=== PATIENT | male | born 1940 | race Hispanic/Latino ===

== ENCOUNTER 2016-10-30 13:17 | Emergency (ER) | payer BC, MEDICARE ==
--- NOTE | 2016-10-30 14:11 | ED PDOC ---
Arrival/HPI - General Chief Complaint: Trauma Time Seen by Provider: 10/30/16 13:52 Historian: Patient - History of Present Illness Narrative History of Present Illness (Text): 10/30/16 14:13 Matthew Nunes is a 76 year old male, with a history of hypertension and pacemaker , presents to the emergency department complaining of left hip pain following a mechanical fall yesterday. Patient states that he tripped over a curb yesterday , and landed on both palms and knees. Reports that he was able to ambulate yesterday immediately after the fall and drive back home. Reports that pain is mostly localized to the posterior aspect of the gluteus. Reports that he took ibuprofen for pain for appreciable relief. He sustained multiple superficial abrasions to bilateral palms and left knee due to fall. Denies any head trauma and loss of consciousness. Currently patient reports of pain and discomfort while bearing weight on the leg. Denies any numbness and weakness to extremity. Denies fever, chills, headache, dizziness, chest pain, shortness of breath, nausea, vomiting, diarrhea, or any other complaints at this time. 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 absent: Fatigue, Fevers Respiratory: absent: SOB, Cough Cardiovascular: absent: Chest Pain Gastrointestinal: absent: Diarrhea, Nausea, Vomiting Musculoskeletal: Other (left knee pain. Superficial abrasions to palms and left knee ) Neurological: absent: Headache, Dizziness Psychiatric: Normal Physical Exam - Physical Exam Narrative Physical Exam (Text): Constitutional: No acute distress. Head: Normocephalic. Atraumatic. Eyes: PERRL. ENT: Moist mucous membranes. Neck: Supple. Cardiovascular: Regular rate. Chest: Left sided pacemaker Respiratory: equal breath sounds bilaterally. GI: Soft. Nontender. Nondistended. Back: No CVA tenderness. Musculoskeletal: multiple superficial abrasions to b/l palms and left knee. No hip tenderness with full range of motion. Skin: No rash. Neurologic: Alert, no focal deficit. Vital Signs Reviewed: Yes Temperature: Afebrile Blood Pressure: Normal Pulse: Regular Respiratory Rate: Normal Appearance: Positive for: Non-Toxic Pain Distress: None Mental Status: Positive for: Alert and Oriented X 3 Medical Decision Making ED Course and Treatment: 10/30/16 14:28 Impression: A 76 year old male who presents to the ed complaining of left hip pain s/p mechanical fall yesterday. On physical exam, there is no hip tenderness with full range of motion. Plan: -- Hip X-ray -- Reassess and disposition Progress Notes: XR negative for fx or dislocation. PO pain control, f/u PMD, return to ER for worsening pain, weakness, urinary or bowel changes, or any other problem. - RAD Interpretation Radiology Orders: 10/30/16 14:05 Hip Left [HIP MIN 2V W/ PELVIS LT] [RAD] Stat - Scribe Statement The provider has reviewed the documentation as recorded by the Tuyetibe Noah Garcia Provider Attestation: All medical record entries made by the Scribe were at my direction and personally dictated by me. I have reviewed the chart and agree that the record accurately reflects my personal performance of the history, physical exam, medical decision making, and the department course for this patient. I have also personally directed, reviewed, and agree with the discharge instructions and disposition. Disposition/Present on Arrival - Present on Arrival Any Indicators Present on Arrival: No History of DVT/PE: No History of Uncontrolled Diabetes: No Urinary Catheter: No History of Decub. Ulcer: No History Surgical Site Infection Following: None - Disposition Have Diagnosis and Disposition been Completed?: Yes Diagnosis: Contusion Disposition: HOME/ ROUTINE Disposition Time: 14:42 Patient Plan: Discharge Condition: STABLE Discharge Instructions (ExitCare): Contusion in Adults (ED) Referrals: Thony Oneill DO [Primary Care Provider] - Follow up with primary
[2016-10-30 14:15] VITALS: BMI 23.0
[2016-10-30 15:05] VITALS: BP 141/84; PULSE 86; RESP 18; TEMP 98.2; O2SAT 100
--- NOTE | 2016-10-30 16:00 | RAD ---
Indication: Fall, left hip pain Left hip with pelvis Comparison: None available Findings: Diffuse osseous demineralization limits evaluation for acute fracture lines. Degenerative changes including bilateral joint space narrowing of the hips. No acute displaced fracture or dislocation identified. Sacroiliac joints appear intact. Mild constipation. Soft tissues appear unremarkable. No evidence of radiopaque foreign body. Impression: No acute displaced fracture or dislocation evident. If high clinical index of suspicion, suggest cross-sectional imaging for further evaluation. Otherwise, if symptoms persist or if there is continued clinical concern, x-ray follow-up in 7-10 days should be considered.
== END 2016-10-30 15:00 | disposition home or self-care (01) ==
LOC: ED 13:17
DX: S70.02XA Contusion of left hip, initial encounter (principal); W01.0XXA Fall on same level from slipping, tripping and stumbling without subsequent striking against object, initial encounter; Y92.488 Other paved roadways as the place of occurrence of the external cause; I10 Essential (primary) hypertension